=== PATIENT | male | born 1990 | race Caucasian/White ===

== ENCOUNTER 2018-03-19 11:20 | Emergency (ER) | payer OTHER ==
--- NOTE | 2018-03-19 11:34 | PDOC ---
History of Present Illness - General Chief Complaint: Abscess Boil Stated Complaint: BOIL TO RIGHT LOWER CHEEK Time Seen by Provider: 03/19/18 11:21 - History of Present Illness Initial Comments: 03/19/18 11:29 27 M with no PMH presents to ED with cyst to R jaw. Pt states that he had an epidermoid cyst removed in July of this year. However, shortly after, he noticed a recurrence. The cyst did not bother him until a few days ago, when he noticed it becoming more swollen and inflamed. Pt denies any drainage from the cyst. Denies any significant pain. Denies F/C. Pt states he was started on Bactrim by his father, a physician. Has taken 2 tablets so far. No significant change yet. Past History - Past Medical History Allergies/Adverse Reactions: Allergies Allergy/AdvReac Type Severity Reaction Status Date / Time No Known Allergies Allergy Verified 03/19/18 11:21 Home Medications: Ambulatory Orders Sulfamethoxazole/Trimethoprim [Bactrim DS -] 1 tab PO BID 03/19/18 - Suicide/Smoking/Psychosocial Hx Smoking Status: No Smoking History: Never smoked Number of Cigarettes Smoked Daily: 0 Review of Systems - Review of Systems Comments:: 03/19/18 11:34 GENERAL/CONSTITUTIONAL: No fever or chills. No weakness. HEAD, EYES, EARS, NOSE AND THROAT: No change in vision. No ear pain or discharge. No sore throat. CARDIOVASCULAR: No chest pain, no shortness of breath, no loss of consciousness RESPIRATORY: No cough, wheezing, or hemoptysis. GASTROINTESTINAL: No nausea, vomiting, diarrhea or constipation. GENITOURINARY: No dysuria, frequency, or change in urination. MUSCULOSKELETAL: No joint or muscle swelling or pain. No neck or back pain. SKIN: + cyst to R jaw NEUROLOGIC: No vertigo, no change in strength/sensation. ENDOCRINE: No increased thirst. No abnormal weight change. HEMATOLOGIC/LYMPHATIC: No anemia, easy bleeding, or history of blood clots. ALLERGIC/IMMUNOLOGIC: No hives or skin allergy. *Physical Exam - Physical Exam Comments: 03/19/18 11:35 GENERAL: Awake, alert, and fully oriented, in no acute distress. HEAD: No signs of trauma EYES: PERRLA, EOMI, sclera anicteric, conjunctiva clear ENT: Auricles normal inspection, hearing grossly normal, nares patent, oropharynx clear without exudates. Moist mucosa NECK: Nontender, no stepoffs, Normal ROM, supple, no lymphadenopathy, JVD, or masses LUNGS: Breath sounds equal, clear to auscultation bilaterally. No wheezes, and no crackles HEART: Regular rate and rhythm, normal S1 and S2, no murmurs, rubs or gallops ABDOMEN: Soft, nontender, normoactive bowel sounds. No guarding, no rebound. No masses EXTREMITIES: Normal range of motion, no edema. No clubbing or cyanosis. No cords, erythema, or tenderness NEUROLOGICAL: Cranial nerves II through XII intact. 5/5 strength and sensation in all extremities, Normal speech, normal gait, normal cerebellar function SKIN: + 1cm cyst to R jaw, with + fluctuance, no significant erythema, no active drainage Medical Decision Making - Medical Decision Making 03/19/18 11:35 27 M with cyst to R jaw. Has h/o epidermoid cyst that was removed from same area , likely a recurrence of same cyst. Cyst is mildly tender but without significant erythema. Possible early stages of infection. Pt with no s/s systemic infection. - Page sent out to Dr. Quiñonez, plastic surgeon conventional mortgage underwriter 03/19/18 12:[address] Quiñonez, who recommends 1-week course of bactrim prior to coming into clinic for removal of cyst. Pt is well appearing, with normal vitals. Clinically stable for DC at this time. I discussed the physical exam findings, ancillary test results and final diagnoses with the patient. I answered all of the patient's questions. The patient was satisfied with the care received and felt comfortable with the discharge plan and treatment plan. The patient agrees to follow up with the primary care physician within 24-72 hours. *DC/Admit/Observation/Transfer Diagnosis at time of Disposition: Cyst - Discharge Dispostion Disposition: HOME Condition at time of disposition: Stable - Referrals Referrals: Terry Quiñonez MD [Staff Physician] - - Patient Instructions Printed Discharge Instructions: DI for Epidermal Cyst Additional Instructions: Continue taking the bactrim twice daily as prescribed for [address] Quiñonez' office to make an appointment for the following week to have the cyst removed. If you experience any worsening swelling, pain, redness, fevers, or any other concerning symptoms, return to the ER immediately. - Post Discharge Activity - Attestations Physician Attestion: 03/19/18 12:07 I, Dr. Oscar Wilkinson MD, attest that this document has been prepared under my direction and personally reviewed by me in its entirety. I further attest, that it accurately reflects all work, treatment, procedures and medical decision -making performed by me.
[2018-03-19 11:40] VITALS: TEMP 98.5; BMI 26.6
[2018-03-19 12:16] VITALS: BP 136/91; PULSE 80
== END 2018-03-19 12:16 | disposition home or self-care (01) ==
LOC: FER 11:20
DX: M27.40 Unspecified cyst of jaw (principal)
CPT/HCPCS: 99281-25